=== PATIENT | male | born 1980 | race Caucasian/White ===

== ENCOUNTER 2018-03-22 07:09 | Emergency (ER) | payer OTHER ==
[~2018-03-22] VITALS: Ht 177.8 cm; Wt 132.4 kg
[~2018-03-22 07:09] MED LIST: FLOMAX0.4 M1 PO; GEODON80 MG PO; GLUCOPHAGE500 MG PO; LEVAQUIN500 MG PO; LEVAQUIN750 MG PO; LISINOPRIL; METFORMIN; Pepcid PO; RISPERDAL0.25 M1 PO; TRAMADOL HCL50 MG PO; VIBRAMYCIN100 MG PO; ZESTRIL,PRINIVI10 M1 PO
[2018-03-22 08:16] LABS: APPEARANCE CLEAR ((CLEAR)); BILIRUBIN NEGATIVE; BLOOD NEGATIVE; COLOR YELLOW ((YELLOW)); GLUCOSE (STRIP) >=500; KETONES NEGATIVE; LEUKOCYTES NEGATIVE; NITRITE NEGATIVE; PROTEIN (STRIP) 30; SPECIFIC GRAVITY 1.028 (1.000-1.030); UCUL ADDED? NO; UROBILINOGEN 0.2 MG/DL (0.2-1.0)
[2018-03-22] MEDS ORDERED: FLEXERIL10 MG PO (08:49)
[2018-03-22] MEDS ORDERED: MOTRIN800 MG PO (08:49)
[2018-03-22] MEDS ORDERED: PREDNISONE20 MG PO (08:49)
[2018-03-22] MEDS ORDERED: LIDODERM 5% P1 PATCH TD (08:50)
[2018-03-22 09:18] VITALS: BP 117/78
== END 2018-03-22 09:19 | disposition home or self-care (01) ==
LOC: EME 07:09
PROVIDERS: Nurse Practitioner Family
DX: M54.16 Radiculopathy, lumbar region (principal); Z87.442 Personal history of urinary calculi; Z88.5 Allergy status to narcotic agent
CPT/HCPCS: 72100; 81003; 99281; 99284; J1885; J7512